=== PATIENT | female | born 2000 | race Caucasian/White ===

== ENCOUNTER 2019-11-11 13:38 | Emergency (ER) | payer SELFPAY ==
[~2019-11-11] VITALS: Ht 165.1 cm; Wt 49.0 kg
[2019-11-11 14:39] LABS: BASOPHILS # (AUTO) 0.03 x10^3/uL (0-0.1); BASOPHILS % (AUTO) 0 % (0-1); EOSINOPHILS # (AUTO) 0.01 x10^3/uL (0-0.4); EOSINOPHILS % (AUTO) 0 % (1-7); LYMPHOCYTES # (AUTO) 1.38 x10^3/uL (1-3.4); LYMPHOCYTES % (AUTO) 18 % (22-44); MD NO; MEAN CORPUSCULAR HEMOGLOBIN 28.5 pg (27.0-34.8); MEAN CORPUSCULAR HGB CONC 33.5 g/dL (32.4-35.8); MEAN CORPUSCULAR VOLUME 85.1 fL (80-100); MEAN PLATELET VOLUME 9.8 fL (7.4-10.4); MONOCYTES # (AUTO) 0.61 x10^3/uL (0.2-0.8); MONOCYTES % (AUTO) 8 % (2-9); NEUTROPHILS # (AUTO) 5.74 x10^3/uL (1.8-6.8); NEUTROPHILS % (AUTO) 74 % (42-75); PLATELET COUNT 232 x10^3/uL (130-400); RED BLOOD COUNT 4.94 x10^6/uL (3.82-5.3); RED CELL DISTRIBUTION WIDTH 14.9 % (9.6-15.2)
[2019-11-11 14:44] LABS: ALANINE AMINOTRANSFERASE 21 U/L (12-78); ALBUMIN 3.9 g/dL (3.4-5.0); ANION GAP 9 mmol/L (5-15); CALCIUM 9.3 mg/dL (8.5-10.1); CHLORIDE 101 mmol/L (98-107); CREATININE 0.65 mg/dL (0.55-1.02)
[2019-11-11 14:46] LABS: ALKALINE PHOSPHATASE 42 U/L (45-117); BILIRUBIN,TOTAL 0.5 mg/dL (0.2-1.0); TOTAL PROTEIN 8.3 g/dL (6.4-8.2)
[2019-11-11 16:52] LABS: MICROSCOPIC INDICATED
[2019-11-11 16:53] LABS: CULTURE INDICATED? YES
--- NOTE | 2019-11-11 18:18 | NUR ---
PT TO RM FROM LOBBY AT THIS TIME
--- NOTE | 2019-11-11 18:24 | NUR ---
PT REPORTS N/V X3 DAYS, STATES SHE VOMITS AFTER SHE EATS OR DRINKS ANYTHING. PT IS 6 WKS , WITH FIRST
[2019-11-11] MEDS ORDERED: SODIUM CHLORIDE 0.9% 1,000ML IVBOLUS ONE (18:30)
[2019-11-11] MEDS ORDERED: ONDANSETRON 2MG/ML, 2ML IVPush ONE (18:30)
[2019-11-11] MEDS ORDERED: ONDANSETRON 2MG/ML, 2ML ONE (18:59)
[2019-11-11 19:53] VITALS: BP 121/70
== END 2019-11-11 20:04 ==
LOC: ED 14:38
DX: O23.11 Infections of bladder in pregnancy, first trimester (principal); R11.2 Nausea with vomiting, unspecified; R51 Headache; E86.0 Dehydration; Z3A.11 11 weeks gestation of pregnancy
CPT/HCPCS: 36415; 76801; 80053; 81001; 84702; 85025; 87086; 96361; 96374; 99284; J2405; J7030

== ENCOUNTER 2020-05-03 20:15 | Inpatient (IN) | payer OTHER ==
[~2020-05-03] VITALS: Ht 167.6 cm; Wt 59.1 kg
[2020-05-03 20:21] VITALS: BP 123/68
[2020-05-04] MEDS ORDERED: LACTATED RINGERS 1,000 ML IV SCH ×2 (00:41→11:20)
[2020-05-04] MEDS ORDERED: RHOGAM FROM BLOOD BANK 1 NOTE EA IM/IV PRN (01:00)
[2020-05-04] MEDS ORDERED: OXYTOCIN 30U/ 0.9% NaCL 500ML 500 ML IV ONE (01:32)
[2020-05-04] MEDS ORDERED: OXYTOCIN 30U/ 0.9% NaCL 500ML 500 ML IV PRN ×2 (01:32→10:39)
[2020-05-04] MEDS ORDERED: ONDANSETRON 2MG/ML, 2ML IVPush PRN ×2 (02:00→11:30)
[2020-05-04] MEDS ORDERED: FENTANYL PF 100 MCG/2ML IVPush PRN ×2 (02:00)
[2020-05-04] MEDS ORDERED: ZOLPIDEM 5MG TABLET PO PRN (02:00)
[2020-05-04] MEDS ORDERED: CALCIUM CARBONATE 500 MG TAB.CHEW PO PRN (02:00)
[2020-05-04 02:01] LABS: AMPHETAMINE SCREEN, URINE Negative (Negative); BARBITURATE SCREEN, URINE Negative (Negative); BENZODIAZEPINE SCREEN, URINE Negative (Negative); CANNABINOID SCREEN, URINE Negative (Negative); COCAINE SCREEN, URINE Negative (Negative); METHADONE SCREEN, URINE Negative (Negative); OPIATE SCREEN, URINE Negative (Negative)
[2020-05-04 02:52] LABS: BASOPHILS # (AUTO) 0.03 x10^3/uL (0-0.1); BASOPHILS % (AUTO) 0 % (0-1); EOSINOPHILS % (AUTO) 0 % (1-7); LYMPHOCYTES # (AUTO) 1.37 x10^3/uL (1-3.4); LYMPHOCYTES % (AUTO) 16 % (22-44); MD NO; MEAN CORPUSCULAR HEMOGLOBIN 26.1 pg (27.0-34.8); MEAN CORPUSCULAR HGB CONC 32.1 g/dL (32.4-35.8); MEAN CORPUSCULAR VOLUME 81.2 fL (80-100); MEAN PLATELET VOLUME 12.4 fL (7.4-10.4); MONOCYTES % (AUTO) 6 % (2-9); NEUTROPHILS # (AUTO) 6.95 x10^3/uL (1.8-6.8); NEUTROPHILS % (AUTO) 79 % (42-75); PLATELET COUNT 159 x10^3/uL (130-400); RED BLOOD COUNT 3.86 x10^6/uL (3.82-5.3); RED CELL DISTRIBUTION WIDTH 15.4 % (9.6-15.2)
[2020-05-04] MEDS ORDERED: LACTATED RINGERS 1,000 ML IVBOLUS ONE (04:00)
[2020-05-04] MEDS ORDERED: METOCLOPRAMIDE 5 MG/ML, 2ML IV ONE (04:00)
[2020-05-04] MEDS ORDERED: SODIUM CITRATE/CITRIC ACID 30 ML UDC PO ONE (04:00)
[2020-05-04] MEDS ORDERED: MISOPROSTOL 25 MCG TABLET ONE (05:25)
[2020-05-04] MEDS ORDERED: OXYTOCIN 30U/ 0.9% NaCL 500ML 500 ML ONE ×3 (05:26→21:59)
[2020-05-04] MEDS: MISOPROSTOL 25 MCG TABLET VG SCH ×2 (05:58→23:51)
[2020-05-04] MEDS ORDERED: LIDOCAINE 1%, 20ML ONE (10:35)
[2020-05-04] MEDS ORDERED: MISOPROSTOL 200 MCG TABLET ONE (10:36)
[2020-05-04] MEDS: LACTATED RINGERS 1,000 ML IV SCH ×3 (10:47→21:00)
[2020-05-04] MEDS ORDERED: FENTANYL/BUPIV./NS/PF 250 ML EPIDCONT ONE (10:58)
[2020-05-04] MEDS ORDERED: BUPIVACAINE 0.25% ONE (10:58)
[2020-05-04] MEDS ORDERED: FENTANYL/BUPIV./NS/PF 250 ML EPIDCONT SCH (11:20)
[2020-05-04] MEDS ORDERED: EPHEDRINE 50 MG/ML, 1ML IVPush PRN (11:30)
[2020-05-04] MEDS ORDERED: DIPHENHYDRAMINE 50 MG/ML, 1ML IVPush PRN (11:30)
[2020-05-04] MEDS ORDERED: NALOXONE 0.4 MG/ML, 1ML IVPush PRN (11:30)
[2020-05-04] MEDS ORDERED: LACTATED RINGERS 1,000 ML IVBOLUS PRN (11:30)
[2020-05-04] MEDS ORDERED: LIDOCAINE/MPF 2%-EPI 1:200K, 20 ML ONE ×2 (15:27→18:20)
[2020-05-04] MEDS ORDERED: ONDANSETRON 2MG/ML, 2ML ONE (19:50)
[2020-05-05] MEDS ORDERED: IBUPROFEN 600 MG TABLET ONE (00:40)
[2020-05-05] MEDS ORDERED: OXYTOCIN 30U/ 0.9% NaCL 500ML 500 ML IV SCH (01:17)
[2020-05-05] MEDS ORDERED: IBUPROFEN 600 MG TABLET PO PRN (01:30)
[2020-05-05] MEDS ORDERED: SIMETHICONE 80 MG CHEW TAB PO PRN (01:30)
[2020-05-05] MEDS ORDERED: DOCUSATE 100 MG CAPSULE PO PRN (01:30)
[2020-05-05] MEDS: LACTATED RINGERS 1,000 ML IV SCH (04:14)
[2020-05-05 04:33] VITALS: BP 90/54
[2020-05-05 07:40] VITALS: BP 97/53
[2020-05-05] MEDS ORDERED: PRENATAL VIT/IRON/FA 1 EACH TABLET PO SCH (09:00)
== END 2020-05-05 08:50 | disposition home or self-care (01) | DRG 805 ==
LOC: LDOP 20:15 → LDIP 05-04 00:41
PROVIDERS: ADMIT Obstetrics & Gynecology; ATTEND Obstetrics & Gynecology
PROC: 10E0XZZ Delivery of Products of Conception, External Approach (ICD-10-PCS; principal; 2020-05-04)
PROC: 3E033VJ Introduction of Other Hormone into Peripheral Vein, Percutaneous Approach (ICD-10-PCS; 2020-05-04)
PROC: 10907ZC Drainage of Amniotic Fluid, Therapeutic from Products of Conception, Via Natural or Artificial Opening (ICD-10-PCS; 2020-05-04)
PROC: 3E0R3BZ Introduction of Anesthetic Agent into Spinal Canal, Percutaneous Approach (ICD-10-PCS; 2020-05-04)
PROC: 00HU33Z Insertion of Infusion Device into Spinal Canal, Percutaneous Approach (ICD-10-PCS; 2020-05-04)
DX: O36.4XX0 Maternal care for intrauterine death, not applicable or unspecified (principal); O45.93 Premature separation of placenta, unspecified, third trimester; Z37.1 Single stillbirth; Z3A.36 36 weeks gestation of pregnancy; Z20.828 Contact with and (suspected) exposure to other viral communicable diseases
CPT/HCPCS: 36415; 76815; 80307; 85025; 86592; 86644; 86695; 86696; 86762; 86777; 86850; 86900; 87635; 88307; G0378; J2405; J2590; J7120

== ENCOUNTER 2020-09-14 00:25 | Emergency (ER) | payer OTHER ==
[~2020-09-14] VITALS: Ht 170.2 cm; Wt 55.3 kg
[2020-09-14] MEDS ORDERED: ONDANSETRON 2MG/ML, 2ML ONE (00:55)
[2020-09-14] MEDS ORDERED: FAMOTIDINE 20 MG/2 ML ONE (00:56)
[2020-09-14] MEDS ORDERED: SODIUM CHLORIDE 0.9% 1,000ML IVBOLUS ONE (01:00)
[2020-09-14] MEDS ORDERED: ONDANSETRON 2MG/ML, 2ML IVPush ONE (01:00)
[2020-09-14] MEDS ORDERED: FAMOTIDINE 20 MG/2 ML IVPush ONE (01:00)
[2020-09-14 01:06] LABS: BASOPHILS % (AUTO) 1 % (0-1); EOSINOPHILS % (AUTO) 0 % (1-7); LYMPHOCYTES % (AUTO) 24 % (22-44); MEAN CORPUSCULAR HEMOGLOBIN 30.5 pg (27.0-34.8); MEAN CORPUSCULAR HGB CONC 34.6 g/dL (32.4-35.8); MEAN PLATELET VOLUME 10.2 fL (7.4-10.4); MONOCYTES % (AUTO) 8 % (2-9); NEUTROPHILS % (AUTO) 67 % (42-75); PLATELET COUNT 173 x10^3/uL (130-400); RED BLOOD COUNT 4.54 x10^6/uL (3.82-5.3); RED CELL DISTRIBUTION WIDTH 12.7 % (9.6-15.2)
--- NOTE | 2020-09-14 01:07 | NUR ---
Medicated patient per mar.
[2020-09-14 01:09] LABS: ALANINE AMINOTRANSFERASE 20 U/L (12-78); ALBUMIN 3.8 g/dL (3.4-5.0); ANION GAP 8 mmol/L (5-15); CALCIUM 8.9 mg/dL (8.5-10.1); CHLORIDE 104 mmol/L (98-107); CREATININE 0.62 mg/dL (0.55-1.02)
[2020-09-14 01:13] LABS: ALKALINE PHOSPHATASE 50 U/L (45-117); BILIRUBIN,TOTAL 0.3 mg/dL (0.2-1.0); TOTAL PROTEIN 7.7 g/dL (6.4-8.2); TROPONIN I < 0.015 ng/mL (0.000-0.045)
[2020-09-14 01:14] LABS: MD NO
[2020-09-14 02:23] VITALS: BP 101/50
== END 2020-09-14 02:25 | disposition home or self-care (01) ==
LOC: ED 02:00
DX: O26.891 Other specified pregnancy related conditions, first trimester (principal); K21.00 Gastro-esophageal reflux disease with esophagitis, without bleeding; R07.89 Other chest pain; Z3A.09 9 weeks gestation of pregnancy
CPT/HCPCS: 36415; 80053; 83690; 84484; 85025; 93005; 96374; 96375; 99284; J2405; J7030

== ENCOUNTER 2020-10-02 20:17 | Emergency (ER) | payer OTHER ==
[~2020-10-02] VITALS: Ht 167.6 cm; Wt 55.2 kg
[2020-10-02] MEDS ORDERED: SODIUM CHLORIDE 0.9% 1,000ML IVBOLUS ONE (20:30)
[2020-10-02] MEDS ORDERED: METOCLOPRAMIDE 5 MG/ML, 2ML IVPush ONE (20:30)
[2020-10-02] MEDS ORDERED: SODIUM CHLORIDE FLUSH 10ML SYR IVF ONE (20:30)
[2020-10-02] MEDS ORDERED: METOCLOPRAMIDE 5 MG/ML, 2ML ONE (20:49)
[2020-10-02 20:53] LABS: BASOPHILS % (AUTO) 1 % (0-1); EOSINOPHILS % (AUTO) 1 % (1-7); LYMPHOCYTES % (AUTO) 24 % (22-44); MEAN CORPUSCULAR HEMOGLOBIN 30.9 pg (27.0-34.8); MEAN CORPUSCULAR HGB CONC 34.7 g/dL (32.4-35.8); MEAN PLATELET VOLUME 10.2 fL (7.4-10.4); MONOCYTES % (AUTO) 7 % (2-9); NEUTROPHILS % (AUTO) 68 % (42-75); PLATELET COUNT 207 x10^3/uL (130-400); RED BLOOD COUNT 4.83 x10^6/uL (3.82-5.3); RED CELL DISTRIBUTION WIDTH 13.4 % (9.6-15.2)
[2020-10-02 20:57] LABS: MD NO
--- NOTE | 2020-10-02 20:59 | NUR ---
CC OF NON STOP N/V, PT 10 WEEKS , SO AT BEDSIDE
[2020-10-02 21:02] LABS: ANION GAP 8 mmol/L (5-15); CHLORIDE 102 mmol/L (98-107); CREATININE 0.73 mg/dL (0.55-1.02)
[2020-10-02 21:26] LABS: MICROSCOPIC INDICATED
--- NOTE | 2020-10-02 21:43 | NUR ---
PT REPORTS RELIEF AFTER MEDICATION AND FLUID. REQUESTING TO GO HOME
[2020-10-02 22:09] VITALS: BP 102/48
== END 2020-10-02 22:11 | disposition home or self-care (01) ==
LOC: ED 20:52
DX: O21.0 Mild hyperemesis gravidarum (principal); O23.11 Infections of bladder in pregnancy, first trimester; Z3A.12 12 weeks gestation of pregnancy
CPT/HCPCS: 36415; 80048; 81001; 82040; 85025; 87086; 96361; 96374; 99283; J2765; J7030

== ENCOUNTER 2020-12-10 19:55 | Emergency (ER) | payer OTHER, MEDICAID ==
[~2020-12-10] VITALS: Ht 170.2 cm; Wt 58.3 kg
--- NOTE | 2020-12-10 20:19 | NUR ---
ASSUMED CARE OF PATIENT. PATIENT REPORTS A HEADACHE WITH BLURRY VISION THAT COMES AND GOES. VS STABLE. PT ALSO REPORTS SHE IS 20 WEEKS . L&D CALLED. CALL LIGHT IN PLACE. WILL CONTINUE TO MONITOR.
[2020-12-10 21:02] LABS: MICROSCOPIC INDICATED
--- NOTE | 2020-12-10 21:05 | NUR ---
L&D IN ROOM DOING HEART TONES
--- NOTE | 2020-12-10 21:20 | NUR ---
DR KOO HAS UPDATED PATIENT
--- NOTE | 2020-12-10 21:37 | NUR ---
PT RESTING IN ROOM. NO ACUTE DISTRESS NOTED. CALL LIGHT IN PLACE. WILL CONTINUE TO MONITOR.
[2020-12-10 22:18] VITALS: BP 103/51
== END 2020-12-10 22:20 | disposition home or self-care (01) ==
LOC: ED 21:57
DX: O26.892 Other specified pregnancy related conditions, second trimester (principal); G43.119 Migraine with aura, intractable, without status migrainosus; Z3A.22 22 weeks gestation of pregnancy
CPT/HCPCS: 81001; 87086; 99283

== ENCOUNTER 2021-01-22 14:42 | Outpatient (CLI) | payer MEDICAID, OTHER ==
[~2021-01-22] VITALS: Ht 170.2 cm; Wt 59.1 kg
[2021-01-22 15:45] VITALS: BP 120/66
[2021-01-22] MEDS ORDERED: PNV1TAB.5 PO (16:02)
[2021-01-22 16:11] LABS: MICROSCOPIC INDICATED
== END 2021-01-22 17:00 | disposition home or self-care (01) ==
LOC: LDOP 14:42
PROVIDERS: ATTEND Obstetrics & Gynecology
DX: O36.8130 Decreased fetal movements, third trimester, not applicable or unspecified (principal); Z3A.28 28 weeks gestation of pregnancy
CPT/HCPCS: 59025; 76819; 81001; 87086

== ENCOUNTER 2021-02-04 19:45 | Outpatient (CLI) | payer MEDICAID ==
[~2021-02-04] VITALS: Ht 167.6 cm; Wt 61.0 kg
[~2021-02-04 19:45] MED LIST: PNV1TAB.5 PO
[2021-02-04 20:14] VITALS: BP 107/59
== END 2021-02-04 21:57 | disposition home or self-care (01) ==
LOC: LDOP 19:45
PROVIDERS: ATTEND Obstetrics & Gynecology
DX: O36.8130 Decreased fetal movements, third trimester, not applicable or unspecified (principal); Z3A.29 29 weeks gestation of pregnancy
CPT/HCPCS: 59025; 76819

== ENCOUNTER 2021-02-19 17:46 | Outpatient (CLI) | payer MEDICAID ==
[~2021-02-19] VITALS: Ht 167.6 cm; Wt 61.8 kg
[2021-02-19 18:07] VITALS: BP 123/63
== END 2021-02-19 18:42 | disposition home or self-care (01) ==
LOC: LDOP 17:46
PROVIDERS: ATTEND Obstetrics & Gynecology
DX: O26.893 Other specified pregnancy related conditions, third trimester (principal); L29.9 Pruritus, unspecified; Z3A.32 32 weeks gestation of pregnancy
CPT/HCPCS: 36415; 59025; 82239